=== PATIENT | male | born 1955 | race Caucasian/White ===

== ENCOUNTER 2024-06-23 07:08 | Day surgery (SDC) | payer MEDICARE, SELFPAY ==
[2024-06-23] VITALS (14 sets, daily range): BP systolic 130–158; BP diastolic 64–87; PULSE 52–94; RESP 16; TEMP 36.3–36.6; O2SAT 92–98; BMI 29.3
[2024-06-23] MEDS: SODIUM CHLORIDE 0.9 % (FLUSH) 10 ML SYRINGE IVF (07:45)
[2024-06-23] MEDS: ACETAMINOPHEN 500 MG TABLET 1000 MG PO (07:50)
[2024-06-23] MEDS: OXYCODONE (CR) 10 MG TAB.ER.12H PO (07:50)
[2024-06-23] MEDS: CELECOXIB 200 MG CAPSULE PO (07:50)
[2024-06-23] MEDS: LACTATED RINGERS 1000 ML 1,000 ML 100 ML IV (10:45)
[2024-06-23] MEDS: MIDAZOLAM HCL 1 MG/ML inj IVP (10:50)
[2024-06-23] MEDS: fentaNYL 100 MCG/2 ML inj IVP (10:50)
[2024-06-23] MEDS: CEFAZOLIN 2 GM INJ IVP (11:34)
--- NOTE | 2024-06-23 11:39 | P.NB_ITS ---
Nerve Block Nerve Block Time Seen by Provider: 10:05 Date Seen: 06/23/24 Type of block requested by surgeon for post-operative analgesia: supraclavicular Side: left Time out performed: Yes Verification of patient name: Yes Verification of date of : Yes Site marking: site marked Name of person performing procedure: Yoel Continuous monitoring Was continuous monitoring of O2 sat, B/P, telemetry monitor, recorded every 15 minutes?: Yes Procedure Checklist: sterile prep, needles and gloves Ultrasound guided. Images saved: Yes Medications given in 5ml increments after negative aspiration: Ropivicaine %: 0.5 mL: 20 Needle gauge: 22 Precedex (mcg): 25 Patient tolerated procedure well: Yes Block Charges Block Charge (with Pro Fee): Brachial Plexus Use of Ultrasound Machine for Block: Yes- US Guidance/pain block
--- NOTE | 2024-06-23 11:40 | W.ANESCHARGE ---
Anesthesia Charges Start Date/Time Anesthesia Start Date: 06/23/24 Anesthesia Start Time: 11:07 Stop Date/Time Anesthesia Stop Date: 06/23/24 Anesthesia Stop Time: 13:09 Summary Extremes of Age - Over 70 or under 1: MDA
[2024-06-23] MEDS: EPINEPHrine 1 MG in SODIUM CHLORIDE IRRIG SOLUTION 3,000 ML 3001 MG IRRIGATION ×3 (11:45→12:10)
--- NOTE | 2024-06-23 11:47 | SUR.OPER ---
PATIENT QUESTIONS ANSWERED SATISFACTORILY PREOPERATIVELY. PATIENT BROUGHT TO OR #1 PER CART FOLLOWING THE BLOCK. Patient positioned supine on OR #1 bed for the intubation.? Perioperative team wrapped the right arm in a neutral position on the pt. abdomen with the drawsheet. Left arm elevated on an IV pole in a padded strap for prep. Final approval of positioning by surgeon. CONTINUOUS IRRIGATION OF THE LEFT SHOULDER WITH MIXTURE OF 3000 NACL AND 1mg OF EPINEPHRINE DURING PROCEDURE.
--- NOTE | 2024-06-23 12:40 | P.ORPRC_ITS ---
Procedure Note Date of procedure: 06/23/24 Procedure: PREOPERATIVE DIAGNOSIS: Left shoulder rotator cuff tear, AC joint arthrosis, labral tearing POSTOPERATIVE DIAGNOSIS: Left shoulder rotator cuff tear, AC joint arthrosis, labral tearing NAME OF OPERATION: Left shoulder arthroscopic subacromial decompression, distal clavicle excision, limited glenohumeral joint debridement, mini open rotator cuff repair SURGEON: Darius Khan MD REHAB/PRE VOCATIONAL COUNSELOR: Kateryna Worley PA-C ANESTHESIA: Supraclavicular block plus general endotracheal ESTIMATED BLOOD LOSS: 5 mL COMPLICATIONS: None SPECIMENS: None DRAINS: None PREOPERATIVE ANTIBIOTICS: Ancef 2 grams INDICATIONS: The patient is a 68-year-old with a history of right shoulder pain secondary to the above diagnoses. Despite appropriate non operative management, they continue to have symptoms. Operative intervention was recommended. The risks, benefits and expected outcomes were discussed in detail. These included but were not limited to: Infection, bleeding, injury to blood vessel or nerve, venous thromboembolism. All questions were answered to their satisfaction. PROCEDURE: A supraclavicular block was placed by Anesthesia. General anesthesia was administered. The patient was placed in the high beach chair position. The right shoulder was prepped and draped in the usual sterile fashion. The glenohumeral joint was infiltrated with 20 mL of normal saline with epinephrine. The posterior portal was established, the arthroscope was introduced. The anterior portal was established, Diagnostic arthroscopy was performed with findings as follows: The biceps and biceps anchor are intact. The anterior, posterior and superior labrum have age-related degenerative tearing. Articular surfaces on the humeral head and glenoid are normal. There are no loose bodies. The undersurface of the rotator cuff is intact. The shaver was used to circumferentially debride the leading edge of the labrum. The arthroscope was placed in the subacromial space, the lateral portal was established. The Arthrex Haswell was used to dissect the acromion free. The CA ligament was recessed off the anterior acromion, the AC joint was exposed. The acromioplasty was performed with the bur in the posterior portal. The bur was then placed in the lateral portal and the lateral and anterior aspect of the acromion were resected. The undersurface of the distal clavicle was resected through the lateral portal. Finally, the bur was placed in the anterior portal and the remainder of the distal clavicle was resected for a total of 10 mm. An accessory anterolateral portal was placed. The subacromial/subdeltoid bursa was aggressively debrided. There is a near full-thickness tear of the supraspinatus. A few joint surface fibers remain intact. Arthroscopic instruments were removed. The accessory anterolateral portal was extended proximally and distally, subcutaneous dissection was taken with electrocautery to the deltoid. The deltoid was divided in line with its fibers. The static retractor was placed. The subacromial/subdeltoid bursa was debrided with the Mina scissors. The few remaining joint surface fibers of the supraspinatus attached to the greater tuberosity were released. The greater tuberosity was debrided to punctate bleeding bone using the Lempert rongeur. Two Arthrex BioComposite SwiveLock anchors were placed just off the articular surface. Both limbs of the FiberWire and fiber tape were passed using the scorpion. A fiber link was placed in the leading edge of the rotator cuff x2. We tied the 2 central FiberWire sutures over the rotator cuff. We then proceeded with a lateral row of SwiveLock anchors x 2 crossing the FiberTape and incorporating the FiberWire and fiber link into each lateral row anchor. This provides an anatomic, watertight repair of the rotator cuff. There is no tension on the repair with the shoulder at 0? abduction. The wound was irrigated with normal saline off the pump. The deltoid was repaired with an 0 Vicryl in an interrupted [id number] fashion. Subcutaneous tissues were closed with a 3-0 Vicryl. Skin was closed with a 3-0 Monocryl in a subcuticular fashion. A dry dressing and sling were applied. Sponge and needle counts were correct x2. The patient tolerated the procedure well. There were no apparent complications. They were carefully transferred to the hospital bed and taken to the postanesthesia care unit in satisfactory condition. PLAN: The patient will be discharged to home. No active range of motion of the shoulder will be allowed for 6 weeks postoperatively. They can work on active range of motion of the elbow, wrist and fingers. They will follow up in the office next week for a wound check and an AP and transscapular Y-view of the shoulder prior to being seen.
--- NOTE | 2024-06-23 13:13 | W.ANESCHARGE ---
Anesthesia Charges Start Date/Time Anesthesia Start Date: 06/23/24 Anesthesia Start Time: 11:07 Stop Date/Time Anesthesia Stop Date: 06/23/24 Anesthesia Stop Time: 13:09 Summary Extremes of Age - Over 70 or under 1: PROPERTY [employer]ITE [employer]GER
[2024-06-23] MEDS: OxyCODONE/APAP 5-325 TABLET 1 TAB PO (14:20)
== END 2024-06-23 15:14 | disposition home or self-care (01) ==
LOC: OR 07:09
PROVIDERS: Visit Provider Orthopaedic Surgery
PROC: (CPT 23412; principal; 2024-06-23 10:45)
DX: M75.102 Unspecified rotator cuff tear or rupture of left shoulder, not specified as traumatic (principal); M19.012 Primary osteoarthritis, left shoulder; S43.432A Superior glenoid labrum lesion of left shoulder, initial encounter; G89.18 Other acute postprocedural pain
CPT/HCPCS: 29826; 29824; 29822; 23412; 01630; 64415; 76942; 99100; A9270; C1713; J0171; J0690; J1100; J2250; J2371; J2405; J2704; J2710; J2795; J3010; J7120; L3670